=== PATIENT | female | born 1970 | race Hispanic/Latino ===

== ENCOUNTER 2023-03-15 05:52 | Day surgery (SDC) | payer BC ==
[2023-03-13 16:33] VITALS: BP 160/77; PULSE 71; RESP 18
[~2023-03-15] VITALS: Ht 162.6 cm; Wt 65.1 kg
[2023-03-15] VITALS (9 sets, daily range): BP systolic 90–185; BP diastolic 43–79; PULSE 74–80; RESP 15–16
[~2023-03-15 05:52] MED LIST: AEC81 PO; ATOR10TA69 PO; CARV25TA PO; CLON1PAT14 TD; HYDR-4153 PO; INSLAN SQ; INSU100V9 SQ; ISOS20TA85 PO; SUCR500T PO
[2023-03-15] MEDS ORDERED: 0.9%NACL 1000ML 1,000 ML IV ONE (06:52)
[2023-03-15] MEDS ORDERED: PROPOFOL 10 MG/ML 20ML VIAL IV ONE (07:41)
[2023-03-15] MEDS ORDERED: EPHEDRINE SULFATE 50 MG/ML AMPULE ONE (08:08)
== END 2023-03-15 09:15 | disposition home or self-care (01) ==
LOC: ENDO 05:52 → DAH 05:52 → ENDO 09:15
PROVIDERS: ATTEND Internal Medicine Gastroenterology
DX: Z12.11 Encounter for screening for malignant neoplasm of colon (principal); K63.89 Other specified diseases of intestine; K59.04 Chronic idiopathic constipation; E10.22 Type 1 diabetes mellitus with diabetic chronic kidney disease; I12.0 Hypertensive chronic kidney disease with stage 5 chronic kidney disease or end stage renal disease; N18.6 End stage renal disease; Z86.010 Personal history of colon polyps; Z98.890 Other specified postprocedural states; Z98.891 History of uterine scar from previous surgery; Z79.82 Long term (current) use of aspirin; Z79.899 Other long term (current) drug therapy
CPT/HCPCS: 82948; 45378; J7030 ×2; J3490; J2704; A4620; A4215 ×2; A4223; A7002; A4222; A4221; A4663; A4216; A4606